=== PATIENT | female | born 1945 | race Caucasian/White ===

== ENCOUNTER 2017-12-02 12:35 | Outpatient (CLI) | payer MEDICARE, BC ==
--- NOTE | 2017-12-02 15:27 | CT ---
CHEST CT WITHOUT CONTRAST: COMPARISON: 11/12/16, 05/12/17. HISTORY: Pulmonary microbacterial infection. History of skin cancer. Intermittent deep cough. TECHNIQUE: Noncontrast head CT is performed in the axial plane. Coronal reformatted images are submitted for in terpretation. FINDINGS: Limited evaluation of the mediastinal structures due to the lack of IV contrast. No mass, lymphadeno sd, or hematoma. Heart size is within normal limits. No pericardial effusion. Visualized aorta has a normal caliber. No periaortic fat stranding. Visualized upper solid organs are unremarkable. Trachea and central bronchi are patent. Redemonstration of multiple subcentimeter nodules scattered throughout the right upper lobe and right lower lobe. There is a stable cylindrical bronchiectasis i n the middle lobe. Stable nodularity in the right and left lung base. Stable focal irregular opacit y in the lateral aspect of the left lower lobe likely representing an area of scarring. No suspiciou s masses throughout the lung parenchyma. Stable 4 mm nodule in the left lower lobe. Stable 5 mm nod ule in the right lower lobe. There are no lytic or blastic lesions in the osseous structures. IMPRESSION: 1. No significant interval change. Stable pulmonary nodularity, some of which have a tree in bud ap pearance. 2. Stable bronchiectasis in the middle lobe. POS: [facility]
== END 2017-12-02 12:36 | disposition home or self-care (01) ==
LOC: CT 12:35
PROVIDERS: ATTEND Internal Medicine
DX: A31.0 Pulmonary mycobacterial infection (principal); K21.9 Gastro-esophageal reflux disease without esophagitis; G47.33 Obstructive sleep apnea (adult) (pediatric); J47.9 Bronchiectasis, uncomplicated; R91.1 Solitary pulmonary nodule
CPT/HCPCS: 71250

== ENCOUNTER 2018-08-24 11:04 | Outpatient (CLI) | payer MEDICARE, BC | END 2018-08-24 11:05 | disposition home or self-care (01) | LOC: BICMAMMO 11:04 | PROVIDERS: ATTEND Obstetrics & Gynecology | DX: Z12.31 Encounter for screening mammogram for malignant neoplasm of breast (principal); Z80.3 Family history of malignant neoplasm of breast; Z85.841 Personal history of malignant neoplasm of brain | CPT/HCPCS: 77063; 77067 ==

== ENCOUNTER 2018-12-13 09:15 | Outpatient (CLI) | payer MEDICARE, BC ==
[2018-12-13] MEDS ORDERED: Iopamidol 370 76% 100 ML VIAL ONE (10:58)
--- NOTE | 2018-12-13 12:08 | CT ---
CT CHEST WITH CONTRAST: Date: 12/13/18 HISTORY: Lung disease. COMPARISON: CT chest without contrast dated 12/02/17. FINDINGS: There is volume loss with chronic traction bronchiectasis and scarring within the right middle lobe, similar. Reticulonodular opacities in the right middle lobe are slightly improved. The right lower lo be reticulonodular opacities have also slightly improved, although a few nodules do persist. Scarring in the lateral basal left lower lobe is similar. Posterior basal right lower lobe nodules ar e similar. No pneumothorax. No effusion. Hypodensity left lobe of thyroid. No mediastinal adenopathy. No pericardial effusion. No aneurysmal dilatation of the aorta. Calcified granulomas within the left lobe of the liver. No thoracic spine compression deformity. Sternum and manubrium are intact. No displaced rib fracture. 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 POS: [facility]
== END 2018-12-13 09:16 | disposition home or self-care (01) ==
LOC: BICCT 09:15
PROVIDERS: ATTEND Internal Medicine
DX: A31.0 Pulmonary mycobacterial infection (principal); K21.9 Gastro-esophageal reflux disease without esophagitis; G47.33 Obstructive sleep apnea (adult) (pediatric); R91.8 Other nonspecific abnormal finding of lung field
CPT/HCPCS: 71260; 82565; Q9967

== ENCOUNTER 2019-07-13 11:01 | Outpatient (CLI) | payer MEDICARE, BC ==
--- NOTE | 2019-07-13 12:21 | RAD ---
PA AND LATERAL VIEWS CHEST: Date: 07/13/19 HISTORY: Dyspnea. FINDINGS: Comparison made with exam of 08/09/04. The heart size is normal. The aorta is tortuous. The lungs are well expanded without focal areas of c onsolidation, pneumothoraces, or pleural effusions. There are degenerative changes in the spine. Post op changes are again noted in the right shoulder. IMPRESSION: No acute process. POS: [facility]
== END 2019-07-13 11:02 | disposition home or self-care (01) ==
LOC: RAD 11:01
PROVIDERS: ATTEND Internal Medicine
DX: R06.00 Dyspnea, unspecified (principal)
CPT/HCPCS: 71046

== ENCOUNTER 2019-08-29 13:13 | Outpatient (CLI) | payer MEDICARE, BC ==
--- NOTE | 2019-08-29 16:25 | MMO ---
Bilateral MAMMO Bilat Screen [facility]. CLINICAL HISTORY: Patient is 73 years old and is seen for screening. The patient has the following family history of breast cancer: mother. The patient has a history of bilateral Cyst Aspiration - benign. VIEWS: The views performed were: bilateral craniocaudal with tomosynthesis and bilateral mediolateral oblique with tomosynthesis. FILMS COMPARED: The present examination has been compared to prior imaging studies performed at [facility] on 07/05/2015, 07/10/2016, 08/19/2017 and 08/24/2018. This study has been interpreted with the assistance of computer-aided detection. MAMMOGRAM FINDINGS: The breasts are heterogeneously dense, which could obscure a lesion on mammography. Benign calcifications are noted bilaterally. There are no suspicious masses, suspicious calcifications, or new areas of architectural distortion. IMPRESSION: THERE IS NO MAMMOGRAPHIC EVIDENCE OF MALIGNANCY. A ROUTINE FOLLOW-UP MAMMOGRAM IN 1 YEAR IS RECOMMENDED. THE RESULTS OF THIS EXAM WERE SENT TO THE PATIENT. ACR BI-RADS Category 2 - Benign finding MAMMOGRAPHY NOTE: 1. A negative mammogram report should not delay a biopsy if a dominant of clinically suspicious mass is present. 2. Approximately 10% to 15% of breast cancers are not detected by mammography. 3. Adenosis and dense breasts may obscure an underlying neoplasm. Reported by: LAURA VILLAFANA MD Electonically Signed: [id number]
== END 2019-08-29 13:14 | disposition home or self-care (01) ==
LOC: BICMAMMO 13:13
PROVIDERS: ATTEND Obstetrics & Gynecology
DX: Z12.31 Encounter for screening mammogram for malignant neoplasm of breast (principal); Z91.89 Other specified personal risk factors, not elsewhere classified; Z80.3 Family history of malignant neoplasm of breast
CPT/HCPCS: 77063; 77067

== ENCOUNTER 2020-09-04 10:50 | Outpatient (CLI) | payer MEDICARE, BC ==
--- NOTE | 2020-09-04 13:36 | ULT ---
ULTRASOUND ABDOMEN: Date: 09/04/2020 HISTORY: Epigastric pain. FINDINGS: The liver, spleen, gallbladder, kidneys, pancreas, and visualized portions of the aorta and IVC appea r normal. The common duct measures 2.0 mm in diameter. No free fluid is seen. IMPRESSION: Normal exam. POS: [facility]
== END 2020-09-04 10:51 | disposition home or self-care (01) ==
LOC: BICULT 10:50
PROVIDERS: ATTEND Physician Assistant Medical
DX: R10.13 Epigastric pain (principal); R14.0 Abdominal distension (gaseous); R19.4 Change in bowel habit; R63.4 Abnormal weight loss
CPT/HCPCS: 93975

== ENCOUNTER 2020-09-11 12:02 | Outpatient (CLI) | payer MEDICARE, BC ==
--- NOTE | 2020-09-11 12:49 | MMO ---
Bilateral MAMMO Bilat Screen [facility]. CLINICAL HISTORY: Patient is 74 years old and is seen for screening. The patient has the following family history of breast cancer: mother. The patient has no personal history of cancer. The patient has a history of bilateral Cyst Aspiration - benign. VIEWS: The views performed were: bilateral craniocaudal with tomosynthesis and bilateral mediolateral oblique with tomosynthesis. FILMS COMPARED: The present examination has been compared to prior imaging studies performed at [facility] on 07/10/2016, 08/19/2017, 08/24/2018 and 08/29/2019. This study has been interpreted with the assistance of computer-aided detection. MAMMOGRAM FINDINGS: The breasts are heterogeneously dense, which could obscure a lesion on mammography. There are stable benign appearing calcifications seen in both breasts. There are also vascular calcifications. There are no suspicious masses, suspicious calcifications, or new areas of architectural distortion. IMPRESSION: THERE IS NO MAMMOGRAPHIC EVIDENCE OF MALIGNANCY. A ROUTINE FOLLOW-UP MAMMOGRAM IN 1 YEAR IS RECOMMENDED. THE RESULTS OF THIS EXAM WERE SENT TO THE PATIENT. ACR BI-RADS Category 2 - Benign finding MAMMOGRAPHY NOTE: 1. A negative mammogram report should not delay a biopsy if a dominant of clinically suspicious mass is present. 2. Approximately 10% to 15% of breast cancers are not detected by mammography. 3. Adenosis and dense breasts may obscure an underlying neoplasm. Reported by: NATE GRACE MD Electonically Signed: [id number]
== END 2020-09-11 12:03 | disposition home or self-care (01) ==
LOC: BICMAMMO 12:02
PROVIDERS: ATTEND Obstetrics & Gynecology
DX: Z12.31 Encounter for screening mammogram for malignant neoplasm of breast (principal); Z80.3 Family history of malignant neoplasm of breast
CPT/HCPCS: 77063; 77067

== ENCOUNTER 2021-01-31 08:59 | Outpatient (CLI) | payer MEDICARE, BC | END 2021-01-31 09:00 | disposition home or self-care (01) | LOC: BICRAD 08:59 | PROVIDERS: ATTEND Internal Medicine Critical Care Medicine | DX: R06.00 Dyspnea, unspecified (principal); R91.8 Other nonspecific abnormal finding of lung field | CPT/HCPCS: 71046 ==

== ENCOUNTER 2021-09-12 09:09 | Outpatient (CLI) | payer MEDICARE, BC | END 2021-09-12 09:10 | disposition home or self-care (01) | LOC: BICMAMMO 09:09 | PROVIDERS: ATTEND Obstetrics & Gynecology | DX: Z12.31 Encounter for screening mammogram for malignant neoplasm of breast (principal); Z98.890 Other specified postprocedural states; Z80.3 Family history of malignant neoplasm of breast | CPT/HCPCS: 77063; 77067 ==

== ENCOUNTER 2022-10-13 11:50 | Outpatient (CLI) | payer MEDICARE, BC | END 2022-10-13 11:51 | disposition home or self-care (01) | LOC: BICMAMMO 11:50 | PROVIDERS: ATTEND Obstetrics & Gynecology | DX: Z12.31 Encounter for screening mammogram for malignant neoplasm of breast (principal); R92.1 Mammographic calcification found on diagnostic imaging of breast; Z80.3 Family history of malignant neoplasm of breast; Z85.828 Personal history of other malignant neoplasm of skin; Z86.018 Personal history of other benign neoplasm | CPT/HCPCS: 77063; 77067 ==

== ENCOUNTER 2023-06-23 09:24 | Outpatient (CLI) | payer MEDICARE, BC | END 2023-06-23 09:25 | disposition home or self-care (01) | LOC: BICMAMMO 09:24 | PROVIDERS: ATTEND Nurse Practitioner Family | DX: N63.11 Unspecified lump in the right breast, upper outer quadrant (principal); N64.52 Nipple discharge | CPT/HCPCS: 76642; 77065; G0279 ==

== ENCOUNTER 2023-07-27 09:26 | Outpatient (CLI) | payer MEDICARE, BC | END 2023-07-27 09:27 | disposition home or self-care (01) | LOC: BICMRI 09:26 | PROVIDERS: ATTEND Internal Medicine | DX: N63.11 Unspecified lump in the right breast, upper outer quadrant (principal); Z80.3 Family history of malignant neoplasm of breast | CPT/HCPCS: 70250; 82565; C8908; A9577 ==

== ENCOUNTER 2023-08-13 08:23 | Outpatient (CLI) | payer MEDICARE, BC | END 2023-08-13 08:24 | disposition home or self-care (01) | LOC: BICMAMMO 08:23 | PROVIDERS: ATTEND Internal Medicine | DX: M81.0 Age-related osteoporosis without current pathological fracture (principal); M85.851 Other specified disorders of bone density and structure, right thigh; M85.852 Other specified disorders of bone density and structure, left thigh | CPT/HCPCS: 77080 ==

== ENCOUNTER 2024-05-17 14:13 | Outpatient (CLI) | payer MEDICARE | END 2024-05-17 14:14 | disposition home or self-care (01) | LOC: BICRAD 14:13 | PROVIDERS: ATTEND Family Medicine | DX: M54.2 Cervicalgia (principal); M47.812 Spondylosis without myelopathy or radiculopathy, cervical region | CPT/HCPCS: 72040 ==

== ENCOUNTER 2024-05-19 08:16 | Outpatient (CLI) | payer MEDICARE | END 2024-05-19 08:17 | disposition home or self-care (01) | LOC: RAD 08:16 | PROVIDERS: ATTEND Internal Medicine Critical Care Medicine | DX: R06.00 Dyspnea, unspecified (principal) | CPT/HCPCS: 71046 ==

== ENCOUNTER 2024-07-19 08:28 | Outpatient (CLI) | payer MEDICARE | END 2024-07-19 08:29 | disposition home or self-care (01) | LOC: BICMAMMO 08:28 | PROVIDERS: ATTEND Internal Medicine | DX: R92.8 Other abnormal and inconclusive findings on diagnostic imaging of breast (principal) | CPT/HCPCS: 77066; 82565; A9577; C8908; G0279 ==

== ENCOUNTER 2024-08-17 08:16 | Outpatient (CLI) | payer MEDICARE | END 2024-08-17 08:17 | disposition home or self-care (01) | LOC: BICRAD 08:16 | PROVIDERS: ATTEND Nurse Practitioner Family | DX: S89.92XA Unspecified injury of left lower leg, initial encounter (principal) ==

== ENCOUNTER 2025-05-25 08:46 | Outpatient (CLI) | payer MEDICARE | END 2025-05-25 08:47 | disposition home or self-care (01) | LOC: RAD 08:46 | PROVIDERS: ATTEND Internal Medicine Critical Care Medicine | DX: R06.00 Dyspnea, unspecified (principal) | CPT/HCPCS: 71046 ==

== ENCOUNTER 2025-06-22 08:17 | Outpatient (CLI) | payer MEDICARE | END 2025-06-22 08:18 | disposition home or self-care (01) | LOC: CT 08:17 | PROVIDERS: ATTEND Physician Assistant Medical | DX: R10.10 Upper abdominal pain, unspecified (principal); R14.0 Abdominal distension (gaseous); R19.7 Diarrhea, unspecified; R63.4 Abnormal weight loss | CPT/HCPCS: 74177 ==